=== PATIENT | male | born 1990 | race Caucasian/White ===

== ENCOUNTER 2022-10-09 12:28 | Day surgery (SDC) | payer OTHER, SELFPAY ==
[2022-10-07 12:14] VITALS: BMI 23.6
[2022-10-09 13:01] VITALS: BP 130/72; PULSE 64; RESP 17; TEMP 36.6; O2SAT 97; BMI 23.6
[2022-10-09] MEDS: LACTATED RINGERS 1,000 ML 42 ML IV ×2 (13:21→16:09)
[2022-10-09 13:34] LABS: COVID19 -Nasal RAPID Negative (Negative)
--- NOTE | 2022-10-09 14:57 | PM.PREOP ---
Pre-operative Note Interval Note History & Physical reviewed/Exam performed by Physician: Yes Changes to H&P: No
--- NOTE | 2022-10-09 15:01 | SUR.PREOP ---
Addendum entered by Keyana Astorga R.N. 10/09/22 15:03: procedure time start: 1448 procedure stop: 1510 Original Note: sciatic and femoral nerve blocks completed. vital signs printed into progress note on chart. pt tolerated well. dr. solano present as anesthesia.
[2022-10-09] MEDS: CEFAZOLIN 2 GM/100 ML PREMIX 100 ML IV (15:25)
[2022-10-09] MEDS: BUPIVACAINE 0.5% W/ EPI (PF) 30 ML VIAL INJ (15:37)
--- NOTE | 2022-10-09 15:41 | SUR.OPER ---
Supine on padded OR bed, head on pillow, right arm secured on padded arm boards at <90 degrees abduction, left arm padded with gel pad and tucked at side, legs uncrossed, safety belt at lower torso, tape over blanket over left lower leg. right lower leg in control of the Surgeon.
[2022-10-09 16:35] VITALS: BP 116/61; PULSE 56; RESP 13; TEMP 36.6; O2SAT 97
[2022-10-09 16:39] VITALS: BP 118/67; PULSE 58; RESP 14; O2SAT 98
[2022-10-09 16:44] VITALS: BP 117/67; PULSE 59; RESP 15; O2SAT 97
[2022-10-09 16:50] VITALS: BP 114/59; PULSE 60; RESP 15; O2SAT 98
[2022-10-09 16:55] VITALS: BP 122/62; PULSE 67; RESP 15; TEMP 36.6; O2SAT 98
--- NOTE | 2022-10-09 17:15 | PM.OP.1 ---
Operative Date/Time/Diagnoses Date of procedure: 10/09/22 Time of procedure: 17:15 Pre-op diagnosis: Right knee medial meniscus tear Post-op diagnosis: same Procedure & Clinicians Procedure: Repair right knee medial meniscus, synovectomy more than 2 compartments Same procedure as scheduled: Yes Indications: Phil is a pleasant 31-year-old male who sustained a meniscus tear left doing yd work. He has failed conservative management to this point. MRI obtained demonstrated a meniscus tear. We discussed operative treatment and risks and benefits. He wished to go forward. Surgeon: Magnus Denton Galvanometer Assembler: Maryse Alberts Anesthesia Type: Sedation Operative Notes Findings: Large bucket-handle medial meniscus tear with a radial component. Synovitis Normal patellofemoral joint Closure Type: primary Specimen(s): none sent Prosthetic devices, grafts, tissues, transplants, or devices: Arthrex Fiber stitch x2 Estimated Blood Loss (mL): 5 Blood products transfused: none Tourniquet time (min): 30 Procedure in detail: The patient was seen in the preoperative holding area. His right lower extremity was marked with my initials. We again discussed the risks and benefits of surgery. He was brought back to the operating room and placed supine on the operating table. A block was performed and he underwent sedation given his cardiac history. The right lower extremity was prepped and draped in the standard sterile fashion and a tourniquet was applied to the upper thigh. A time-out was performed and my initials were again confirmed the right lower extremity. IV antibiotics were given. I began by making a standard anteromedial and anterolateral portal incisions. A diagnostic arthroscopy was performed. The patellofemoral compartment had perfect condition cartilage although there was an inflamed anterior fat pad. No loose bodies in the medial or lateral gutters. The lateral compartment had good cartilage on the femoral condyle and tibial plateau and the lateral meniscus was intact. The intercondylar notch had intact ACL and PCL. The medial compartment had intact cartilage over the medial femoral condyle and medial tibial plateau. There was a large bucket-handle tear of the medial meniscus with a radial component at the junction of the posterior horn and body. I began by debriding the radial component and smoothing the edges leading into it. After this was performed it was noted that the tear was reducible. Two separate Arthrex fiber stitch implants were used to suture the meniscus to the remaining meniscus and capsule. We then tested the repair with a probe and felt this was a stable repair. Arthroscopy equipment was removed from the knee and it was suctioned dry. The portals were closed with buried subcutaneous Monocryl. 15 cc of Marcaine were then placed into the joint. He was brought back to the postoperative recovery unit and awoke quickly. No complications. Complications: none Post-operative Condition: stable Disposition: PACU Plan for aftercare: Nonweightbearing or toe-touch weight-bearing on crutches for the next 4 weeks. At 4 weeks he can start partial weight-bearing, up to 50% for 2 more weeks. At the 6 week brianna he can be full weight-bearing. No deep squatting or pivoting or cutting activities such as snowboarding or skiing until the three-month brianna.
== END 2022-10-09 17:30 | disposition home or self-care (01) ==
PROVIDERS: PCP Family Medicine; Referring Provider Orthopaedic Surgery; Visit Provider Orthopaedic Surgery
PROC: (CPT 29870; principal; 2022-10-09 14:00)
DX: S83.231A Complex tear of medial meniscus, current injury, right knee, initial encounter (principal); G89.18 Other acute postprocedural pain; X50.1XXA Overexertion from prolonged static or awkward postures, initial encounter; Y93.H9 Activity, other involving exterior property and land maintenance, building and construction; Y92.007 Garden or yard of unspecified non-institutional (private) residence as the place of occurrence of the external cause; Z20.822 Contact with and (suspected) exposure to COVID-19
CPT/HCPCS: 29882; 64450; 87635; C1776; C9803; J0171; J0690; J2250; J2704; J3010